=== PATIENT | female | born 1985 | race Caucasian/White ===

== ENCOUNTER 2022-11-11 15:56 | Emergency (ER) | payer MEDICAID, SELFPAY ==
[2022-11-11 17:28] VITALS: BP 142/92; PULSE 65; RESP 20; TEMP 36.8; O2SAT 100; BMI 47.0
--- NOTE | 2022-11-11 17:48 | HMH.EDGENADL ---
Discharge Plan Disposition Patient Disposition: Home, Self-Care Condition: Good Chief Complaint: Extremity Problem,Nontraumatic Referrals Follow up/Referrals: Dorie Diaz APRN [Primary Care Provider] - See instructions Activity Restrictions/Add. Instructions Additional Instructions/Restrictions: Call primary care provider tomorrow to arrange follow-up for further care. Clinical Impressions Clinical Impression: Bilateral hand pain, Localized swelling on right hand, Foot pain, left Discharge ED Provider: Prateek Villagomez General Adult [facility] General Chief complaint: Extremity Problem,Nontraumatic Stated complaint: numbness,swelling pain in both hands, and toes Time Seen by Provider: 11/11/22 17:38 Mode of Arrival: Ambulatory Source of Information: Patient Limitations: No Limitations Description of Symptoms (Recalled from ER Triage Doc. by RN): pt to ed c/o right hand & bilateral feet numbness and tingling. pt states she has noticed some right hand swelling as well. pt states the numbness and tingling to her right hand has been chronic but has not lasted more than a day prior to now. pt states she seen her pcp for this and she was started on b12 injections and iron supplements. pt states this is the first time she has had swelling associated and also the first time she has had feet tingling/numbness. all pulses intact. pt states a prior hx of htn. pt denies soa, cp or any other symptoms. History of Present Illness HPI narrative: Patient complains of pain, with sensation of numbness and tightness in both of her hands in the last 3 toes of her left foot. She also has some swelling of her right hand. Yesterday her right hand felt cool compared to the left, but not today. She states she was diagnosed with vitamin B12 and iron deficiency in August and has been on iron supplements and B12 injections. She started having symptoms in her hands and feet in September but symptoms have now worsened. She is wondering whether her symptoms are related to her supplementation. Denies fevers. Denies vomiting or diarrhea. She says she recently got over a sinus infection, she did not receive antibiotics or other treatment for it. Related Data Allergies Allergy/AdvReac Type Severity Reaction Status Date / Time Tetanus Vaccines and Toxoid Allergy Verified 11/11/22 17:57 [facility] Disclaimer: The information contained in this section may have been updated after the patient was seen, as this information can be updated by other users. Social History Smoking Status: Never smoker ROS Obtained: Yes Systems reviewed as appropriate & no additional complaints except as documented Constitutional Constitutional: Denies fever(s), Denies headache(s) and Denies weakness ENT Ears, Nose, Mouth, and Throat: Reports as per HPI (Recent sinus infection) and Denies headache(s) Cardiovascular Cardiovascular: Denies chest pain Respiratory Respiratory: Denies shortness of breath and Denies cough Gastrointestinal Gastrointestingal: Denies abdominal pain, constipation, diarrhea or vomiting Genitourinary Female Genitourinary: Denies difficulty voiding, Denies dysuria and Denies flank pain Musculoskeletal Musculoskeletal: Reports as per HPI (Pain of hands and left foot, swelling of right hand) and Reports tingling Neurologic Neurologic: Denies headache(s), Reports tingling and Denies weakness Physical Exam General General appearance: alert and in no apparent distress Head Head exam: atraumatic and normocephalic Eye Eye exam: Present normal appearance and EOMI ENT ENT exam: Present mucous membranes moist Neck Neck exam: Present normal inspection and trachea midline Chest Chest inspection: Present normal inspection and symmetric chest wall rise Respiratory Respiratory exam: Present normal lung sounds bilaterally; Absent respiratory distress Cardiovascular Cardiovascular exam: Present regular rate, normal rhythm and normal heart sounds Abdominal Exam A
[2022-11-11 19:11] LABS: Basophils # 0.1 K/mm3 (0-0.2); Basophils % 0.7 % (0.1-2.0); Eosinophils # 0.4 K/mm3 (0.0-0.4); Eosinophils % 4.3 % (0.1-12.0); Hematocrit 40.1 % (37.0-47.0); Hemoglobin 13.3 g/dL (12.2-16.2); Lymphocytes # 1.7 K/mm3 (0.7-4.5); Lymphocytes % 19.7 % (10-50); Mean Corpuscular HGB Conc 33.1 g/dL (31.8-35.4); Mean Corpuscular Hemoglobin 28.5 pg (27.0-31.2); Mean Corpuscular Volume 86.1 fl (81-99); Mean Platelet Volume 9.2 fl (7.4-10.4); Monocytes # 0.3 K/mm3 (0.1-1.0); Monocytes % 2.8 % (1.7-9.3); Neutrophils # 6.4 K/mm3 (1.8-7.8); Neutrophils % 72.5 % (37.0-80.0); Platelet Count 273 K/mm3 (142-424); Red Blood Count 4.66 M/mm3 (4.20-5.40); Red Cell Distribution Width 17.4 % (11.5-17.5); White Blood Count 8.8 K/mm3 (4.8-10.8)
[2022-11-11 19:13] LABS: Chloride 107 mmol/L (98-107); Potassium 4.4 mmoL/L (3.5-5.1); Sodium 138 mmol/L (136-145)
[2022-11-11 19:16] LABS: Alanine Aminotransferase 33 U/L (12-78); Albumin Level 4.1 g/dl (3.5-5.0); Alkaline Phosphatase 143 U/L (38-126); Anion Gap 12.4 mEq/L (5-15); Aspartate Amino Transferase 31 U/L (14-36); Bilirubin,Total 0.3 mg/dl (0.2-1.3); Blood Urea Nitrogen 17 mg/dl (7-17); Calcium 8.6 mg/dl (8.4-10.2); Carbon Dioxide 23 mmol/L (22.0-30.0); Creatinine Clearance Estimated 97 mL/min (50-200); Estimated Glomerular Filt Rate 93 ml/min (>60); GFR (African American) 113 ML/MIN (>60); Globulin 4.1 g/dL (1.3-3.2); Glucose 111 mg/dl (74-100); Total Protein,Serum 8.2 g/dl (6.3-8.2)
[2022-11-11 19:17] LABS: Magnesium 2.3 mg/dl (1.6-2.3)
[2022-11-11 19:22] LABS: C-Reactive Protein 9.9 mg/L (0-4)
[2022-11-11 19:33] LABS: Erythrocyte Sedimentation Rate 34 mm/hr (0-20)
[2022-11-11 19:51] VITALS: BP 139/87; PULSE 61; RESP 20; TEMP 36.8; O2SAT 100
== END 2022-11-11 19:52 | disposition home or self-care (01) ==
PROVIDERS: Emergency Provider Emergency Medicine; PCP Nurse Practitioner Family
DX: M79.672 Pain in left foot; R20.2 Paresthesia of skin; M79.641 Pain in right hand; M79.642 Pain in left hand; R60.0 Localized edema
CPT/HCPCS: 80053; 83735; 85025; 85651; 86140; 99285

== ENCOUNTER 2024-07-05 16:01 | Emergency (ER) | payer MEDICAID, SELFPAY ==
[2024-07-05 16:15] VITALS: BP 97/79; PULSE 114; RESP 28; TEMP 38.3; O2SAT 95; BMI 60.2
--- NOTE | 2024-07-05 16:26 | XR_ITS ---
PROCEDURE INFORMATION: Exam: XR Chest Exam date and time: 07/05/2024 4:24 PM Age: 38 years old Clinical indication: Cough and shortness of breath; Additional info: Cough, SOA TECHNIQUE: Imaging protocol: Radiologic exam of the chest. Views: 2 views. COMPARISON: No relevant prior studies available. FINDINGS: Lungs: No evidence of pneumonia or interstitial edema. Pleural spaces: Unremarkable. No pleural effusion. No pneumothorax. Heart/Mediastinum: Unremarkable. No cardiomegaly. Bones/joints: Unremarkable. IMPRESSION: No evidence of pneumonia or interstitial edema.
[2024-07-05 16:31] VITALS: BP 111/74
--- NOTE | 2024-07-05 16:31 | EXP.UTC ---
Discharge Plan Disposition Patient Disposition: Home, Self-Care Condition: Good Prescriptions Prescriptions: New benzonatate 100 mg capsule 100 mg PO TID PRN (Reason: cough) Qty: 30 0RF doxycycline hyclate 100 mg capsule 100 mg PO BID Qty: 20 0RF guaifenesin [Mucinex] 600 mg tablet extended release 12hr 1,200 mg PO BID PRN (Reason: cough) Qty: 20 0RF Referrals Follow up/Referrals: Zully Pendleton APRN [Primary Care Provider] - See instructions Activity Restrictions/Add. Instructions Additional Instructions/Restrictions: Start antibiotic today. Be sure to complete entire prescription even if feeling better Monitor temp. Tylenol every 4 hours as needed and / or ibuprofen every 6 hours as needed ( As long as your primary care physician has told you that it ok to take both. For fever/aches/pains ER if no less than 101 despite Tylenol or Motrin Humidifier/vaporizer or hot steamy shower Mucinex during the day for your cough and cough suppressant only at night. Be sure to drink lots of water. Insurance may not cover a prescriptions for mucinex. Might be cheaper to get 400mg tablets and take 2 tablet in the morning, mid-day and evening with lots of water. *Tessalon Perles will not cause drowsiness but use at bedtime to help stop cough so that you may get some rest. Follow up IMMEDIATELY for new or worsening of symptoms OR no noticeable improvement over the next 48-72 hours. 911 immediately for any life threatening symptoms such as chest pain or difficulty breathing You were tested for today for COVID19 your test result should be back in the next 24 hours, you may check your results on the [facility] Clinical Impressions Clinical Impression: Acute bronchitis Stand Alone Forms Stand Alone Forms: Work/School Release Instructions Patient Instructions: Acute Bronchitis, DI for Acute Bronchitis, Doxycycline Print Language Print Language: Tunisian Discharge ED Provider: Mackenzie Nelson [facility] HPI General Stated complaint: soa, wheezing, fever, cough Mode of Arrival: Ambulatory Source of Information: Patient Limitations: No Limitations Time Seen by Provider: 07/05/24 16:32 Description of Symptoms (Recalled from Triage Doc. by RN): PATIENT C/O FEVER, DEEP COUGH, RATTLING IN CHEST, SOA, AND CHILLS SINCE YESTERDAY MORNING HEENT Symptoms (Recalled from RN notes): No Resp Symptoms (Recalled from RN notes): Yes Skin Symptoms (Recalled from RN notes): No MS Symptoms (Recalled from RN notes): No Functional Status (Recalled from RN notes): WNL History of Present Illness Provider Complaint: Patient states that she started feeling bad yesterday States that she started with sore scratchy throat, sinus congestion and pressure, cough, chest congestion, body aches, fever and chills states her cough is deep and rattling at times States if she has a coughing episode she feels SOA and feels like it takes her a moment to catch her breath Related Data Previous Rx's ?Medication ?Instructions ?Recorded benzonatate 100 mg capsule 100 mg PO TID PRN cough #30 caps 07/05/24 doxycycline hyclate 100 mg capsule 100 mg PO BID #20 caps 07/05/24 guaifenesin 600 mg tablet, 1,200 mg (2 x 600 mg) PO BID PRN 07/05/24 extended release 12 hr (Mucinex) cough #20 tabs Allergies Allergy/AdvReac Type Severity Reaction Status Date / Time Tetanus Vaccines and Toxoid Allergy Verified 11/11/22 17:57 Worker's Comp Is this a Worker's Comp case?: No [facility] Disclaimer: The information contained in this section may have been updated after the patient was seen, as this information can be updated by other users. Social History Smoking Status: Never smoker alcohol intake: never current occupational status: employed Travel in the last 8 weeks: None ROS Obtained: Yes All systems reviewed & no additional complaints except as documented and Yes Systems reviewed as appropriate & no additional complaints except as documented Constitutional Constitutional: Reports system reviewed and no additional complaints, except as documented, Reports as per HPI, Reports body ache, Reports chills, Reports fever(s) and Reports headache(s) ENT Ears, Nose, Mouth, and Throat: Reports system reviewed and no additional complaints, except as documented, Reports as per HPI, Reports headache(s), Reports nasal congestion, Reports sinus pressure and Reports sore throat Cardiovascular Cardiovascular: Reports system reviewed and no additional complaints, except as documented, Reports as per HPI, Denies chest pain and Denies edema Respiratory Respiratory: Reports system reviewed and no additional complaints, except as documented, Reports as per HPI, Reports shortness of breath, Reports chest congestion, Reports cough and Reports pain with cough Gastrointestinal Gastrointestingal: Reports system reviewed and no additional complaints, except as documented and as per HPI Neurologic Neurologic: Reports headache(s) Physical Exam General General appearance: alert and in no apparent distress ENT ENT exam: Present mucous membranes moist Expanded ENT Exam Nose exam: Present sinus tenderness Throat exam: Present other (Pharyngeal erythema noted with PND) Respiratory Respiratory exam: Present normal lung sounds bilaterally; Absent respiratory distress or wheezes Cardiovascular Cardiovascular exam: Present regular rate, normal rhythm and tachycardia Abdominal Exam Abdominal exam: Present soft and normal bowel sounds; Absent distention or tenderness Neurological Exam Neurological exam: Present alert, oriented X3 and normal gait Medical Decision Making Sanjay Inquiry Pt receiving controlled substance: No Sanjay was queried for this patient: No Vital Signs: 07/05/24 16:15 07/05/24 16:31 Temperature 100.9 F H Temperature Source Oral Pulse Rate [Left Brachial] 114 H Respiratory Rate 28 H Blood Pressure [Left Arm] 97/79 L 111/74 Blood Pressure Mean [Left Arm] 85 86 Blood Pressure Source [Left Arm] Automatic Cuff Automatic Cuff Blood Pressure Position [Left Arm] Sitting Sitting 02 Sat by Pulse Oximetry 95 Oxygen Delivery Method Room Air Orders (Tests/Meds): ORDERS Category Date Time Status Chest XR 2 view (NOT portable) [XR chest 2V] Stat Exams 07/05/24 16:26 Ordered Radiology Data #1: Image(s): Chest Image Reviewed: Yes I have reviewed radiologist's interpretation IMPRESSION: No evidence of pneumonia or interstitial edema. Medical Decision Narrative: Patients RR increased mildly after coughing episode then returns to normal around 20 BP rechecked 111/74
[2024-07-05 17:07] LABS: UTC Influenza A Antigen Negative (Negative)
[2024-07-05 17:08] LABS: UTC Influenza B Antigen Negative (Negative)
[2024-07-05] MEDS: IPRATROPIUM/ALBUTEROL 3 ML NEB IH (17:22)
[2024-07-05] MEDS: METHYLPREDNISOLONE SOD SUCC 125MG VIAL 125 MG IM (17:45)
[2024-07-05] MEDS: LIDOCAINE 1% 5ML PF VIAL IM (17:45)
[2024-07-05] MEDS: cefTRIAXone 1GM VIAL 1 GM IM (17:45)
[2024-07-05 17:52] VITALS: BP 111/74; PULSE 114; RESP 22; TEMP 38.3; O2SAT 95
== END 2024-07-05 17:59 | disposition home or self-care (01) ==
PROVIDERS: Emergency Provider Nurse Practitioner; PCP Nurse Practitioner Family
DX: J20.9 Acute bronchitis, unspecified (principal); R50.9 Fever, unspecified; R06.02 Shortness of breath; R07.0 Pain in throat; R09.89 Other specified symptoms and signs involving the circulatory and respiratory systems
CPT/HCPCS: 71046; 87635; 87804; 96372; 99204; 99212; G0463; J0696; J2919; J7620